=== PATIENT | female | born 2000 | race Hispanic/Latino ===

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

== ENCOUNTER 2019-07-13 16:33 | Observation (INO) | payer MEDICAID ==
[~2019-07-13] VITALS: Ht 152.4 cm; Wt 58.5 kg
[2019-07-19] MEDS ORDERED: IBUP-2071 PO (12:31)
== END 2019-07-13 17:00 | disposition home or self-care (01) ==
LOC: LDH 16:33
DX: O26.893 Other specified pregnancy related conditions, third trimester (principal); N89.8 Other specified noninflammatory disorders of vagina; Z3A.38 38 weeks gestation of pregnancy
CPT/HCPCS: G0378 ×2

== ENCOUNTER 2019-09-06 19:13 | Emergency (ER) | payer MEDICAID ==
[~2019-09-06 19:13] MED LIST: IBUP-2071 PO
[2019-09-06] MEDS ORDERED: ACETAMINOPHEN EXTRA STRENGTH 500 MG TABLET ONE (19:26)
== END 2019-09-06 21:01 | disposition home or self-care (01) ==
LOC: EDH 19:13
DX: M79.10 Myalgia, unspecified site (principal); R50.9 Fever, unspecified; R05 Cough; K21.9 Gastro-esophageal reflux disease without esophagitis; Z90.49 Acquired absence of other specified parts of digestive tract; Z91.040 Latex allergy status

== ENCOUNTER 2020-07-19 11:10 | Inpatient (IN) | payer MEDICAID ==
[2020-07-19 11:49] LABS: APPEARANCE,URINE Cloudy (CLEAR); BILIRUBIN,URINE Negative (NEGATIVE); COLOR,URINE Dark Yellow (YELLOW); GLUCOSE, URINE (UA) Negative (NEGATIVE); KETONES,URINE Negative (NEGATIVE); LEUKOCYTE ESTERASE ,URINE Small (NEGATIVE); NITRATE,URINE Negative (NEGATIVE); OCCULT BLOOD,URINE Large (NEGATIVE); PH,URINE 6.5 (5.0-8.0); PROTEIN,URINE Trace mg/dL (NEGATIVE)
[2020-07-19 12:52] LABS: BACTERIA,URINE Moderate /HPF (None Seen); RBC,URINE 0-1 /HPF (0-1); SQUAMOUS EPITHELIAL CELL,UR Many /HPF (0-2)
[2020-07-19 15:58] LABS: HEMATOCRIT 28.5 % (36-48); MEAN CORPUSCULAR HEMOGLOBIN 22.6 pg (27.0-33.0); MEAN CORPUSCULAR HGB CONC 30.2 g/dL (32.0-36.0); PLATELET COUNT (AUTO) 193 K/uL (130-400); RED CELL DISTRIBUTION WIDTH 17.9 % (11.0-15.5)
[2020-07-19] MEDS ORDERED: LACTATED RINGERS 500 ML 500 ML IV PRN (16:00)
[2020-07-19] MEDS ORDERED: MEPERIDINE-PF 50 MG/ML SYG IVP PRN (16:00)
[2020-07-19] MEDS ORDERED: LACTATED RINGERS 1000ML 1,000 ML IV PRN (16:00)
[2020-07-19] MEDS ORDERED: EPHEDRINE SULFATE 50 MG/ML AMPULE IVP PRN (16:00)
[2020-07-19] MEDS ORDERED: NALOXONE HCL 0.4 MG/1 ML ML IV PRN (16:00)
[2020-07-19] MEDS ORDERED: AMPICILLIN 2GM+NS 100ML 100 ML IV SCH (16:00)
[2020-07-19] MEDS ORDERED: PROMETHAZINE HCL 25 MG/ML 1ML AMPULE IM PRN (16:00)
[2020-07-19] MEDS ORDERED: OXYTOCIN-LR 20 UNITS/1000 ML 1,000 ML IV SCH ×2 (17:45→20:00)
[2020-07-19] MEDS ORDERED: FENTANYL CITRATE PF 50 MCG/1 ML 2ML VIAL ONE (18:14)
[2020-07-19] MEDS ORDERED: LIDOCAINE HCL 1% 20 ML VIAL ONE (19:26)
[2020-07-19] MEDS ORDERED: BENZOCAINE/LANOLIN/ALOE VERA 60 ML AEROSOL TP PRN (20:00)
[2020-07-19] MEDS ORDERED: WITCH HAZEL 1 PAD TP PRN (20:00)
[2020-07-19] MEDS ORDERED: ACETAMINOPHEN WITH CODEINE 1 TAB TAB PO PRN (20:00)
[2020-07-19] MEDS ORDERED: DIPH,PERTUSS(ACELL),TET VAC/PF 0.5 ML VIAL IM PRN (20:00)
[2020-07-19] MEDS ORDERED: MEASLES/MUMPS/RUBELLA VACCINE, LIVE 0.5 ML/VIAL SQ PRN (20:00)
[2020-07-19] MEDS ORDERED: LANOLIN 30GM OINTMENT TP PRN (20:00)
[2020-07-19] MEDS ORDERED: AMPICILLIN 1GM+NS 50ML 50 ML IV SCH (20:00)
[2020-07-19] MEDS ORDERED: ACETAMINOPHEN 325 MG TAB PO PRN (20:00)
[2020-07-19 21:45] VITALS: BP 118/67
[2020-07-19] MEDS: IBUPROFEN 600 MG TABLET PO PRN (21:57)
[2020-07-19] MEDS: DOCUSATE SODIUM 100 MG CAP PO SCH (21:57)
[2020-07-19] MEDS ORDERED: PREN-18 PO (23:14)
[2020-07-19 23:50] VITALS: BP 115/69
[2020-07-20 03:30] VITALS: BP 111/71
[2020-07-20 06:51] LABS: MEAN CORPUSCULAR HEMOGLOBIN 22.8 pg (27.0-33.0); MEAN CORPUSCULAR VOLUME 76.1 fL (80-100); NUCLEATED RED BLOOD CELLS 0.2 % (0.0-0.19); RED BLOOD CELL COUNT(AUTO) 3.94 MIL/uL (4.00-5.50); WHITE BLOOD COUNT (AUTO) 10.7 K/uL (4.8-10.8)
[2020-07-20 07:46] LABS: RAPID PLASMA REAGIN NONREACTIVE (NONREACTIVE)
[2020-07-20] MEDS: DOCUSATE SODIUM 100 MG CAP PO SCH (09:12)
[2020-07-20] MEDS: IBUPROFEN 600 MG TABLET PO PRN ×2 (09:13→15:00)
[2020-07-20 11:57] VITALS: BP 115/63
[2020-07-20 15:05] VITALS: BP 112/68
[2020-07-22 04:09] LABS: HEPATITIS Bs ANTIGEN SCREEN P Negative (Negative)
== END 2020-07-20 18:45 | disposition home or self-care (01) | DRG 560 ==
LOC: EDH 11:10 → LDH 11:11 → OBSVTOIN 11:11 → WSH 21:42
PROVIDERS: ADMIT Specialist; ATTEND Specialist
PROC: 10E0XZZ Delivery of Products of Conception, External Approach (ICD-10-PCS; principal; 2020-07-19)
PROC: 0UQMXZZ Repair Vulva, External Approach (ICD-10-PCS; 2020-07-19)
PROC: 3E0R3BZ Introduction of Anesthetic Agent into Spinal Canal, Percutaneous Approach (ICD-10-PCS; 2020-07-19)
PROC: 00HU33Z Insertion of Infusion Device into Spinal Canal, Percutaneous Approach (ICD-10-PCS; 2020-07-19)
PROC: 3E0234Z Introduction of Serum, Toxoid and Vaccine into Muscle, Percutaneous Approach (ICD-10-PCS; 2020-07-19)
PROC: 3E0134Z Introduction of Serum, Toxoid and Vaccine into Subcutaneous Tissue, Percutaneous Approach (ICD-10-PCS; 2020-07-19)
DX: O69.81X0 Labor and delivery complicated by cord around neck, without compression, not applicable or unspecified (principal); O99.02 Anemia complicating childbirth; D64.9 Anemia, unspecified; O71.82 Other specified trauma to perineum and vulva; Z3A.38 38 weeks gestation of pregnancy; Z37.0 Single live birth; Z91.040 Latex allergy status; Z23 Encounter for immunization
CPT/HCPCS: 36415; 81001; 85027; 86592; 86701; 86850; 86900; 86901; 87088; 87340; 87390; A4314; G0378; J2175; J2550; J2590; J3010; J7120

== ENCOUNTER 2020-08-25 22:39 | Emergency (ER) | payer MEDICAID ==
[~2020-08-25 22:39] MED LIST changes: +PREN-18 PO
[2020-08-25] MEDS ORDERED: IBUPROFEN 600 MG TABLET ONE (23:01)
[2020-08-25] MEDS ORDERED: ACETAMINOPHEN 325 MG TAB ONE (23:01)
[2020-08-25] MEDS ORDERED: ZOSYN 3.375GM+NS 50ML 50 ML IV ONE (23:01)
[2020-08-25 23:29] LABS: BASOPHILS % (AUTO) 0.2 % (0.0-5.0); EOSINOPHILS % (AUTO) 0.6 % (0.0-8.0); HEMATOCRIT 41.5 % (36-48); LYMPHOCYTES % (AUTO) 6.2 % (21.0-51.0); MEAN CORPUSCULAR HEMOGLOBIN 23.6 pg (27.0-33.0); MEAN CORPUSCULAR HGB CONC 31.6 g/dL (32.0-36.0); MEAN CORPUSCULAR VOLUME 74.9 fL (80-100); MONOCYTES % (AUTO) 2.6 % (3.0-13.0); NEUTROPHILS % (AUTO) 90.1 % (40.0-77.0); PLATELET COUNT (AUTO) 195 K/uL (130-400); RED BLOOD CELL COUNT(AUTO) 5.54 MIL/uL (4.00-5.50); RED CELL DISTRIBUTION WIDTH 25.4 % (11.0-15.5); WHITE BLOOD COUNT (AUTO) 9.5 K/uL (4.8-10.8)
[2020-08-25 23:35] LABS: APPEARANCE,URINE SL CLOUDY (CLEAR); BILIRUBIN,URINE SMALL (NEGATIVE); COLOR,URINE ORANGE (YELLOW); GLUCOSE, URINE (UA) NEGATIVE (NEGATIVE); KETONES,URINE 40 mg/dL (NEGATIVE); LEUKOCYTE ESTERASE ,URINE NEGATIVE (NEGATIVE); NITRATE,URINE NEGATIVE (NEGATIVE); OCCULT BLOOD,URINE LARGE (NEGATIVE); PH,URINE 8.5 (5.0-8.0); PROTEIN,URINE 30 mg/dL (NEGATIVE); UROBILINOGEN,URINE 0.2 mg/dL (0.2-1.0)
[2020-08-25 23:43] LABS: HCG,QUAL RESULT NEGATIVE (NEGATIVE)
[2020-08-25 23:50] LABS: CREATININE 0.9 mg/dL (0.5-1.5); POTASSIUM 3.4 mmol/L (3.5-5.1)
[2020-08-25 23:54] LABS: ALBUMIN 4.3 g/dL (3.5-5.0); BILIRUBIN,TOTAL 1.5 mg/dL (0.2-1.0); TOTAL PROTEIN, SERUM 7.8 g/dL (6.0-8.3)
[2020-08-26 00:10] LABS: BACTERIA,URINE Few /HPF (None Seen); RBC,URINE TNTC /HPF (0-1)
[2020-08-26 00:11] LABS: SQUAMOUS EPITHELIAL CELL,UR 0-2 /HPF (0-2)
[2020-08-26 00:18] LABS: RAPID GROUP A STREP NEGATIVE (NEGATIVE)
== END 2020-08-26 03:09 | disposition home or self-care (01) ==
LOC: EDH 22:39
DX: K52.9 Noninfective gastroenteritis and colitis, unspecified (principal); K21.9 Gastro-esophageal reflux disease without esophagitis; Z20.822 Contact with and (suspected) exposure to COVID-19; Z90.49 Acquired absence of other specified parts of digestive tract; Z91.040 Latex allergy status
CPT/HCPCS: 36415; 71045; 76705; 80053; 81001; 81025; 82150; 83605; 83690; 85025; 87040 ×2; 87426; 87804 ×2; 87880; 96374; 99285; J2543; U0003

== ENCOUNTER 2020-10-25 18:03 | Emergency (ER) | payer MEDICAID ==
[2020-10-25] MEDS ORDERED: CEPHALEXIN 500 MG CAPSULE ONE (20:44)
[2020-10-25] MEDS ORDERED: TETANUS/DIPHTHERIA TOXOID [ADULT] 0.5 ML VIAL IM ONE (20:45)
[2020-10-25] MEDS ORDERED: ACETAMINOPHEN-CODEINE 300/30MG TAB ONE (20:45)
[2020-10-25] MEDS ORDERED: OCTYL 2-CYANOACRYLATE 1 EACH TP ONE (21:05)
== END 2020-10-25 21:21 | disposition home or self-care (01) ==
LOC: EDH 18:03
DX: S61.511A Laceration without foreign body of right wrist, initial encounter (principal); S60.811A Abrasion of right wrist, initial encounter; K21.9 Gastro-esophageal reflux disease without esophagitis; Z91.040 Latex allergy status; Z90.49 Acquired absence of other specified parts of digestive tract; W25.XXXA Contact with sharp glass, initial encounter; Y93.G1 Activity, food preparation and clean up; Y92.89 Other specified places as the place of occurrence of the external cause; Y99.8 Other external cause status
CPT/HCPCS: 73110; 90471; 90714

== ENCOUNTER 2021-01-22 18:08 | Emergency (ER) | payer MEDICAID ==
[~2021-01-22] VITALS: Ht 152.4 cm; Wt 56.7 kg
[2021-01-22] MEDS ORDERED: D-ME1POW16 PO (19:55)
[2021-01-22 20:12] VITALS: BP 115/75
== END 2021-01-22 20:27 | disposition home or self-care (01) ==
LOC: EDH 18:08
DX: U07.1 COVID-19 (principal); B34.9 Viral infection, unspecified; Z79.899 Other long term (current) drug therapy; Z91.040 Latex allergy status
CPT/HCPCS: 87635; 99283; C9803

== ENCOUNTER 2022-09-27 11:38 | Emergency (ER) | payer MEDICAID ==
[~2022-09-27] VITALS: Ht 152.4 cm; Wt 41.7 kg
[~2022-09-27 11:38] MED LIST changes: +D-ME1POW16 PO
[2022-09-27 13:19] LABS: HCG,QUALITATIVE URINE POSITIVE (NEGATIVE)
[2022-09-27 13:20] LABS: APPEARANCE,URINE CLOUDY (CLEAR); BILIRUBIN,URINE NEGATIVE (NEGATIVE); COLOR,URINE YELLOW (YELLOW); GLUCOSE, URINE (UA) NEGATIVE (NEGATIVE); KETONES,URINE 20 mg/dL (NEGATIVE); LEUKOCYTE ESTERASE ,URINE 500 Leu/uL (NEGATIVE); NITRATE,URINE NEGATIVE (NEGATIVE); OCCULT BLOOD,URINE NEGATIVE (NEGATIVE); PROTEIN,URINE 20 mg/dL (NEGATIVE); UROBILINOGEN,URINE 0.2 mg/dL (0.2-1.0)
[2022-09-27 13:23] LABS: BASOPHILS % (AUTO) 0.2 % (0.0-5.0); EOSINOPHILS % (AUTO) 0.2 % (0.0-8.0); HEMATOCRIT 37.8 % (36-48); LYMPHOCYTES % (AUTO) 14.8 % (21.0-51.0); MEAN CORPUSCULAR HEMOGLOBIN 29.3 pg (27.0-33.0); MEAN CORPUSCULAR HGB CONC 33.6 g/dL (32.0-36.0); MEAN CORPUSCULAR VOLUME 87.1 fL (79-99); MONOCYTES % (AUTO) 6.2 % (3.0-13.0); NEUTROPHILS % (AUTO) 77.7 % (40.0-77.0); PLATELET COUNT (AUTO) 227 K/uL (130-400); RED BLOOD CELL COUNT(AUTO) 4.34 MIL/uL (4.00-5.50); RED CELL DISTRIBUTION WIDTH 13.4 % (11.0-15.5); WHITE BLOOD COUNT (AUTO) 12.4 K/uL (4.8-10.8)
[2022-09-27 13:29] LABS: BACTERIA,URINE FEW /HPF (None Seen); MUCUS,URINE RARE LPF (None Seen); SQUAMOUS EPITHELIAL CELL,UR MOD /HPF (0-2)
[2022-09-27 13:32] LABS: CREATININE 0.5 mg/dL (0.5-1.5); POTASSIUM 3.5 mmol/L (3.5-5.1)
[2022-09-27 13:58] LABS: ALBUMIN 3.8 g/dL (3.5-5.0); TOTAL PROTEIN, SERUM 7.7 g/dL (6.0-8.3)
[2022-09-27 14:13] VITALS: BP 115/62
[2022-09-27] MEDS ORDERED: ONDANSETRON ODT 4MG TAB SL ONE (14:30)
[2022-09-27] MEDS ORDERED: CEPH500B PO (14:33)
[2022-09-27] MEDS ORDERED: ONDA4TAB10 PO (14:33)
[2022-09-27] MEDS ORDERED: FAMO-136 PO (14:33)
== END 2022-09-27 15:09 | disposition home or self-care (01) ==
LOC: EDH 11:38
DX: O23.41 Unspecified infection of urinary tract in pregnancy, first trimester (principal); Z3A.01 Less than 8 weeks gestation of pregnancy; N39.0 Urinary tract infection, site not specified; Z20.822 Contact with and (suspected) exposure to COVID-19; Z79.899 Other long term (current) drug therapy; Z98.890 Other specified postprocedural states; Z90.49 Acquired absence of other specified parts of digestive tract; Z91.040 Latex allergy status
CPT/HCPCS: 99283; 87635; 80053; 84702; 85025; 87088; 87804 ×2; 81001; 81025; 36415; C9803